=== PATIENT | male | born 1995 | race Caucasian/White ===

== ENCOUNTER 2017-11-12 17:18 | Emergency (ER) | payer SELFPAY ==
[2017-11-12] MEDS: SOD CHLORIDE 0.9% 1,000 ML IV (19:00)
[2017-11-12] MEDS: ONDANSETRON 4 MG INJ IV (19:02)
[2017-11-12] MEDS: morphine 2 MG INJ IV ×2 (19:02→20:40)
[2017-11-12] MEDS: FAMOTIDINE 20 MG INJ IV (19:03)
[2017-11-12] MEDS: METHYLPREDNISOLONE 125 MG INJ IV (19:04)
[2017-11-12 19:22] LABS: ADD MAN DIFF? NO
[2017-11-12 19:25] LABS: BASOPHILS % 0.3 % (0.0-2.0); EOSINOPHILS % 0.4 % (0.0-7.0); HEMATOCRIT 42.4 % (42.0-52.0); HEMOGLOBIN 14.8 g/dl (14.0-18.0); LYMPHOCYTES # 1.8 10^3/ul (0.8-2.9); LYMPHOCYTES % 15.7 % (15.0-51.0); MEAN CORPUSCULAR HEMOGLOBIN 30.4 pg (29.0-33.0); MEAN CORPUSCULAR HGB CONC 34.9 g/dl (32.0-37.0); MEAN CORPUSCULAR VOLUME 87.1 fl (82.0-101.0); MEAN PLATELET VOLUME 9.3 fl (7.4-10.4); MONOCYTE # 0.5 10^3/ul (0.3-0.9); MONOCYTES % 4.8 % (0.0-11.0); NEUTROPHIL # 8.9 10^3/ul (1.6-7.5); NEUTROPHILS % 78.4 % (39.0-77.0); PLATELET COUNT 245 10^3/UL (140-415); RED BLOOD COUNT 4.87 10^6/ul (4.70-6.10); RED CELL DISTRIBUTION WIDTH 12.6 % (11.5-14.5)
[2017-11-12 19:25] LABS: WHITE BLOOD COUNT 11.4 10^3/ul (4.8-10.8)
[2017-11-12 19:31] LABS: ADD UMIC NO; UR ASCORBIC ACID NEGATIVE (NEGATIVE); UR BILIRUBIN (Dip) NEGATIVE (NEGATIVE); UR BLOOD (Dip) NEGATIVE (NEGATIVE); UR CLARITY CLEAR (CLEAR); UR COLOR YELLOW (YELLOW); UR GLUCOSE (Dip) NEGATIVE (NEGATIVE); UR KETONES (Dip) 2+ mg/dL (NEGATIVE); UR LEUKOCYTE ESTERASE (Dip) NEGATIVE Leu/ul (NEGATIVE); UR NITRITE (Dip) NEGATIVE (NEGATIVE); UR SPECIFIC GRAVITY (Dip) 1.018 (1.003-1.030); UR TOTAL PROTEIN (Dip) NEGATIVE (NEGATIVE); UR UROBILINOGEN (Dip) NEGATIVE (NEGATIVE)
[2017-11-12 19:42] LABS: ALANINE AMINOTRANSFERASE 24 IU/L (13-69); ALBUMIN 4.3 g/dl (3.3-4.9); ALKALINE PHOSPHATASE 88 IU/L (42-121); ANION GAP 17 (8-16); ASPARTATE AMINO TRANSFERASE 24 IU/L (15-46); BILIRUBIN,INDIRECT 0.4 mg/dl (0-1.1); BILIRUBIN,TOTAL 0.4 mg/dl (0.2-1.3); BLOOD UREA NITROGEN 13 mg/dl (7-20); CALCIUM 9.6 mg/dl (8.4-10.2); CARBON DIOXIDE 26 mmol/L (21-31); CHLORIDE 100 mmol/L (97-110); CREATININE 0.72 mg/dl (0.61-1.24); GLUCOSE 97 mg/dl (70-220); LIPASE 146 U/L (23-300); POTASSIUM 3.4 mmol/L (3.5-5.1); SODIUM 140 mmol/L (135-144); TOTAL PROTEIN 8.2 g/dl (6.1-8.1)
== END 2017-11-12 20:57 | disposition home or self-care (01) ==
LOC: FTE 17:18
DX: K50.90 Crohn's disease, unspecified, without complications (principal)
CPT/HCPCS: 36415; 80053; 81003; 83690; 85025; 96374; 96375; 96376; 99284-25